=== PATIENT | female | born 1980 | race American Indian/Alaskan Native ===

== ENCOUNTER 2018-10-16 17:41 | Emergency (ER) | payer OTHER ==
[2018-10-16 18:13] VITALS: BP 146/78
[2018-10-16 18:44] LABS: Basophils # (Auto) 0.1 K/mm3 (0.0-0.1); Basophils % (Auto) 0.9 % (0.0-1.8); Eosinophils # (Auto) 0.2 K/mm3 (0.0-0.4); Eosinophils % (Auto) 1.3 % (0.0-4.3); Hematocrit 35.4 % (30.3-42.9); Hemoglobin 11.8 gm/dl (10.1-14.3); Lymphocytes # (Auto) 4.2 K/mm3 (1.2-5.4); Lymphocytes % (Auto) 29.8 % (13.4-35.0); Mean Corpuscular HGB Conc 33 % (30-34); Mean Corpuscular Volume 83 fl (79-97); Monocytes # (Auto) 1.3 K/mm3 (0.0-0.8); Monocytes % (Auto) 9.6 % (0.0-7.3); Platelet Count 412 K/mm3 (140-440); Red Blood Count 4.27 M/mm3 (3.65-5.03); Red Cell Distribution Width 15.4 % (13.2-15.2)
[2018-10-16 19:08] LABS: Bilirubin,Urine NEG (Negative); Blood,Urine LG (Negative); Color,Urine Yellow (Yellow); Mucus,Urine FEW /HPF; Protein,Urine <15 mg/dL mg/dL (Negative); Urobilinogen,Urine < 2.0 mg/dL (<2.0)
[2018-10-16 19:09] LABS: RBC,Urine > 182.0 /HPF (0.0-6.0)
--- NOTE | 2018-10-16 21:56 | Ultrasound Report ---
PROCEDURE: US PELVIC COMPLETE HISTORY: vaginal bleed FINDINGS: Real-time ultrasound pelvis was performed by transabdominal technique. The uterus measures 9.9 x 5.6 x 7.1 cm. There is a fundal leiomyoma, 1.9 cm. The endometrial stripe is thickened at 1.5 cm. The right ovary measures 2.5 x 1.6 x 1.6 cm. The left ovary measures 5.9 x 2.4 x 4.5 cm [address] a [address] measuring 2.4 cm. There is no evidence of ovarian torsion. IMPRESSION: Uterine fundal leiomyoma Mild thickening of endometrial stripe This document is electronically signed by Ovi Mujica MD., Oct 16 2018 09:54:22 PM ET
--- NOTE | 2018-10-17 01:02 | Emergency Department Report ---
ED Female HPI - General Chief complaint: Vaginal Bleeding Stated complaint: HEAVY BLEEDING/CLOTS/PAIN Time Seen by Provider: 10/17/18 00:37 Source: patient Mode of arrival: Ambulatory Limitations: No Limitations - History of Present Illness Initial comments: 37-year-old female to emergency Department complaining of a 2 day history of very heavy. Involving clots using about 5-6 pads in the course of the day. States usually has a a pretty moderately flowing menstruation. No masses for about 7 days. She said the last menstrual. She had last month, lasted for 11 days and she hasn't spotting off and on since that time. She has no uterine fibroids to her knowledge, but does have a history of ovarian cysts. She reports no trauma. Reports no vaginal discharge. Post no fever, chills, sweats, chest pain, palpitations. No presyncope. MD Complaint: vaginal bleeding, pelvic pain Location: suprapubic Quality: cramping Consistency: constant Are you Now?: No Associated Symptoms: vaginal bleeding. denies: nausea/vomiting, fever/chills, loss of appetite, dysuria, hematuria, syncope, weakness - Related Data Sexually active: No Previous Rx's Medication Instructions Recorded Last Taken Type Ketorolac [Toradol] 10 mg PO Q6H PRN #15 tablet 10/17/18 Unknown Rx traMADol [Ultram] 50 mg PO Q6HR PRN #20 tablet 10/17/18 Unknown Rx Allergies Allergy/AdvReac Type Severity Reaction Status Date / Time No Known Allergies Allergy Verified 10/16/18 17:42 ED Review of Systems ROS: Stated complaint: HEAVY BLEEDING/CLOTS/PAIN Other details as noted in HPI Constitutional: denies: chills, fever Eyes: denies: eye pain, eye discharge, vision change ENT: denies: ear pain, throat pain Respiratory: denies: cough, shortness of breath, wheezing Cardiovascular: denies: chest pain, palpitations Endocrine: no symptoms reported Gastrointestinal: denies: abdominal pain, nausea, diarrhea Genitourinary: denies: urgency, dysuria, discharge Musculoskeletal: denies: back pain, joint swelling, arthralgia Skin: denies: rash, lesions Neurological: denies: headache, weakness, paresthesias Psychiatric: denies: anxiety, depression Hematological/Lymphatic: denies: easy bleeding, easy bruising ED Past Medical Hx - Past Medical History Previous Medical History?: No - Surgical History Past Surgical History?: No - Social History Smoking Status: Current Every Day Smoker Substance Use Type: Alcohol - Medications Home Medications: Home Medications Medication Instructions Recorded Confirmed Last Taken Type Ketorolac [Toradol] 10 mg PO Q6H PRN #15 tablet 10/17/18 Unknown Rx traMADol [Ultram] 50 mg PO Q6HR PRN #20 tablet 10/17/18 Unknown Rx ED Physical Exam - General Limitations: No Limitations General appearance: alert, in no apparent distress - Head Head exam: Present: atraumatic, normocephalic - Eye Eye exam: Present: normal appearance, PERRL, EOMI Pupils: Present: normal accommodation - ENT ENT exam: Present: normal exam, normal orophraynx, mucous membranes moist - Neck Neck exam: Present: normal inspection - Respiratory Respiratory exam: Present: normal lung sounds bilaterally. Absent: respiratory distress - Cardiovascular Cardiovascular Exam: Present: regular rate, normal rhythm. Absent: systolic murmur, diastolic murmur, rubs, gallop - GI/Abdominal GI/Abdominal exam: Present: soft, normal bowel sounds - Extremities Exam Extremities exam: Present: normal inspection - Back Exam Back exam: Present: normal inspection - Neurological Exam Neurological exam: Present: alert, oriented X3 - Psychiatric Psychiatric exam: Present: normal affect, normal mood - Skin Skin exam: Present: warm, dry, intact, normal color. Absent: rash ED Course Vital Signs 10/16/18 18:12 Temperature 97.9 F Pulse Rate 87 Respiratory 16 Rate Blood Pressure 146/78 O2 Sat by Pulse 99 Oximetry ED Medical Decision Making - Lab Data Result diagrams: 10/16/18 18:25 - Medical Decision Making 37-year-old obese female with uterine fibroids on ultrasound and newly abnormal menses. THE last 2 days. Advised her to follow with [facility] and continue to track her pad usage. Her hemo-globin is stable at this present time as well as her vital signs. Critical care attestation.: If time is entered above; I have spent that time in minutes in the direct care of this critically ill patient, excluding procedure time. ED Disposition Clinical Impression: Leiomyoma Disposition: [id number] TO HOME OR SELFCARE Is pt being admited?: No Does the pt Need Aspirin: No Condition: Stable Instructions: Uterine Fibroids (ED) Prescriptions: Ketorolac [Toradol] 10 mg PO Q6H PRN #15 tablet PRN Reason: Pain traMADol [Ultram] 50 mg PO Q6HR PRN #20 tablet PRN Reason: Pain Referrals: AKHIL LEZAMA MD [Primary Care Provider] - 3-5 Days [facility] [Provider Group] - 3-5 Days
== END 2018-10-17 01:07 | disposition home or self-care (01) ==
LOC: ED 17:41
DX: D25.9 Leiomyoma of uterus, unspecified (principal); F17.200 Nicotine dependence, unspecified, uncomplicated
CPT/HCPCS: 36415; 76856; 81001; 84703; 85025